=== PATIENT | male | born 1970 | race Caucasian/White ===

== ENCOUNTER 2021-06-07 10:52 | Emergency (ER) | payer BC ==
[~2021-06-07] VITALS: Ht 188 cm; Wt 93.0 kg
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
--- NOTE | 2021-06-07 11:05 | NUR ---
at bedside for assessment
[2021-06-07] MEDS ORDERED: HYDROCODONE/APAP 5-325MG TABLET PO ONE (11:15)
[2021-06-07] MEDS ORDERED: HYDROCODONE/APAP 5-325MG TABLET ONE (11:20)
--- NOTE | 2021-06-07 11:33 | NUR ---
Patient returned from CT scan at this time
[2021-06-07] MEDS ORDERED: HYDR-4209 PO (11:54)
[2021-06-07] MEDS ORDERED: IBUP-1957 PO (11:54)
--- NOTE | 2021-06-07 12:14 | NUR ---
Patient discharged to home in stable condition. Written and verbal after care instructions given. Patient verbalizes understanding of instructions. Stressed follow up or return to ER for worsening s/s.
[2021-06-07 12:51] VITALS: BP 130/68
== END 2021-06-07 12:14 | disposition home or self-care (01) ==
LOC: ER 10:52
DX: S33.5XXA Sprain of ligaments of lumbar spine, initial encounter (principal); V49.49XA Driver injured in collision with other motor vehicles in traffic accident, initial encounter; Y92.414 Local residential or business street as the place of occurrence of the external cause; Z87.891 Personal history of nicotine dependence; J43.2 Centrilobular emphysema; K40.90 Unilateral inguinal hernia, without obstruction or gangrene, not specified as recurrent; M51.36 Other intervertebral disc degeneration, lumbar region; N28.1 Cyst of kidney, acquired
CPT/HCPCS: A4663